=== PATIENT | male | born 1945 | race Caucasian/White ===

== ENCOUNTER 2022-11-20 14:15 | Inpatient (IN) | payer MEDICARE, OTHER ==
[2022-11-20] VITALS (15 sets, daily range): BP systolic 108–157; BP diastolic 61–141
[~2022-11-20] VITALS: Ht 172.7 cm; Wt 81.2 kg
[2022-11-20 17:43] LABS: Anti-Xa UFH, PHA Monitoring 0.17 IU/mL; International Normalized Ratio 0.98; Prothrombin Time Results 10.3 Sec (9.7-11.5)
--- NOTE | 2022-11-20 19:10 | NUR ---
Summary. Pt arrived to ICU from [facility] for NSTEMI. Pt alert and oriented upon arrival, C/O 4 out of 10 chest pain. EKG obtained, pt admitted by hospitalist. Heparin infusing at 12 unit/kg/hr upon arrival, pharmacy increased rate to 14 unit/kg/hr current infusion rate. Dr Power at bedside ATT, report given to nightshift RN.
[2022-11-20 19:51] LABS: Hematocrit 37.7 % (37.0-53.0); Hemoglobin 12.4 g/dL (13.5-17.5); Platelet Count 196 K/mm3 (150-400)
--- NOTE | 2022-11-20 19:57 | NUR ---
ASSUMED CARE AT 1900 PATIENT IS ALERT AND ORIENTED X4. 02 SATS 97% ON RA, STATES SOME SOB WITH ACTIVITY. HR SR 60s, BP STABLE. 2/10 CP, TOLERABLE RIGHT NOW. HEPARIN INFUSING. DR. CARDONA IN ROOM TO ASSESS PATIENT AT START OF SHIFT AND EXPLAINED PLAN OF CARE TO PATIENT AND FAMILY. SEE SHIFT ASSESSMENT FOR MORE INFORMATION.
--- NOTE | 2022-11-20 19:59 | NUR ---
IGINITION SOURCE AND RISK REVIEWED WITH PATIENT, DENIES SMOKING OR HAVING ANY EXERCISE MANAGER OR MATCHES. VERBALIZED UNDERSTANDING OF RISKS AND AGREES
[2022-11-21] VITALS (12 sets, daily range): BP systolic 105–142; BP diastolic 58–75
[2022-11-21 03:48] LABS: International Normalized Ratio 0.98; Prothrombin Time Results 10.3 Sec (9.7-11.5)
[2022-11-21 03:52] LABS: Alanine Aminotransfer (ALT/SGP 29 U/L (12-78); Albumin, Blood 3.3 g/dL (3.4-5.0); Albumin/Globulin Ratio 0.9 (0.8-1.8); Alk Phos 78 U/L (50-136); Anion Gap 6 mmol/L (6-16); Aspartate Aminotrans (AST/SGOT 82 U/L (12-37); Bilirubin, Total 0.4 mg/dL (0.1-1.0); Blood Urea Nitrogen 22 mg/dL (8-24); Bun/Creatinine Ratio 15.3 (12.0-20.0); CHOL/HDL RATIO 3.5; CO2, Blood 27 mmol/L (21-32); Calcium, Blood 8.7 mg/dL (8.5-10.1); Chloride, Blood 105 mmol/L (98-108); Cholesterol 122 mg/dL (50-200); Creatinine, Blood 1.44 mg/dL (0.60-1.20); Globulin, Blood 3.5 g/dL (2.2-4.0); Glomerular Filtration Rate 49 (60-); Glucose, Blood 131 mg/dL (70-99); HDL Cholesterol 35 mg/dL (>39); Hematocrit 34.6 % (37.0-53.0); Hemoglobin 11.3 g/dL (13.5-17.5); LDL/HDL RATIO 1.2; Low Density Lipoprotein Chol 43 mg/dL (0-110); Magnesium, Blood 2.1 mg/dL (1.6-2.4); Mean Corpuscular HGB Conc 32.7 g/dL (31.5-36.5); Mean Corpuscular Volume 83 fL (80-100); Mean Platelet Volume 12.7 fL (9.1-12.4); Platelet Count 151 K/mm3 (150-400); Potassium, Blood 4.2 mmol/L (3.5-5.5); RDW Coefficient Variation 16.2 % (11.7-14.2); RDW Standard Deviation 47.2 fL (35.1-46.3); Red Blood Cell Count 4.19 M/mm3 (4.30-5.90); Sodium, Blood 138 mmol/L (136-145); Total Protein, Blood 6.8 g/dL (6.4-8.2); Triglycerides 222 mg/dL (30-160); Very Low Density Lipoprot Chol 44 mg/dL (6-32); White Blood Cell Count 12.61 K/mm3 (4.00-11.30)
--- NOTE | 2022-11-21 05:34 | NUR ---
SHIFT SUMMARY PATIENT IS ALERT AND ORIENTED X4. PLACED ON 2L O2 WHILE SLEEPING DUE TO APNIEC BREATHING WHERE 02 SATS WOULD DROP TO THE LOWER 80s. DENIES SOB. HR SB-SR 55-60s, BP STABLE. PATIENT DENIES CP/PRESSURE. NPO AFTER MIDNIGHT. HEPARIN REMAINS INFUSING. CALL LIGHT IN REACH
--- NOTE | 2022-11-21 07:36 | NUR ---
ASSUMED CARE OF NATASHA AT 0700, HE DENIES ANY PAIN, DYSPNEA OR N/V AT THIS TIME. HE IS CURRENTLY ON HEPARIN GTT @ 14U/KG, EDUCATED ON BLEEDING TENDENCY WITH BLOOD THINNERS. PT INFORMED THAT CLEANER ASSISTANT IS SCHEDULED FOR AROUND 0830, EDUCA- [place] ON WHAT HAPPENS IN CLEANER ASSISTANT, TALKED ABOUT TRANSFERRING TO ANOTHER FACILITY IF NECESSARY FOR SURGERY. QUESTIONS ANSWERED. PT VERY APPROPRIATE AND PLEASANT.
--- NOTE | 2022-11-21 08:13 | NUR ---
NATASHA WAS JUST TAKEN TO COURT RECORDER BY KRISTIAN BRAUN AND SAMEER. AND GRANDDAUGHTER WERE AT THE DOOR AND WERE ABLE TO SAY HELLO AND WILL BE WAITING IN THE ICU WTG ROOM.
--- NOTE | 2022-11-21 10:08 | NUR ---
PT RETURNS AROUND 0915 TO ICU 3. HE IS ALERT AND ORIENTED, DENIES ANY DISCOMFORT. RIGHT TR BAND INTACT, NO EVIDENCE OF BLEEDING. TEACHING DONE, AND GRANDDAUGHTER TO THE ROOM, IN TO EXPLAIN RESULTS AND PLAN OF CARE FOR THE DAY. WILL START DEFLATING TR BAND AROUND 11. PT C/O HUNGER, CHEESE AND CRACKERS GIVEN. IV FLUIDS RESTARTED @ 150ML/HR PER ORDERS.
--- NOTE | 2022-11-21 10:38 | NUR ---
IN TO SEE PT. NO CHANGES.
--- NOTE | 2022-11-21 12:10 | NUR ---
ECHOCARDIOGRAM COMPLETED, BLOOD SUGAR CHECKED, INSULIN COVERAGE GIVEN. NATASHA WAS CONCERED THAT HIS BG WAS 180. EDUCATION COMPLETED. AT BEDSIDE, ASSITTING HIM WITH HIS TRAY
--- NOTE | 2022-11-21 12:57 | NUR ---
TR BAND SUCCESSFULLY DEFLATED WITH NO EVIDENCE OF LEAKING. SITE IS WITHOUT TENDERNESS OR HEMATOMA.
--- NOTE | 2022-11-21 17:58 | NUR ---
NATASHA HAS CONTINUED WITHOUT ANY PAIN OR DISCOMFORT T/O THE SHIFT. HE HAS VOICED THAT HE IS "SURPRISED" THAT HE HAD A HEART ATTACK. HE HAS BEEN MADE AWARE OF HIS AORTIC STENOSIS AND THE INTENT TO TRANSFER HIM TO ANOTHER FACILITY. HIS IV CONTINUES AT 150ML/HR X THIS ONE BAG. HE HAS BEEN ABLE TO VOID PER URINAL, TAKE IN HIS MEALS WITHOUT INCIDENT, AND VISITS WITH HIS FAMILY. CONTINUES ON ROOM AIR, SATS >90%.
--- NOTE | 2022-11-21 18:06 | NUR ---
PT HAS BEEN ACCEPTED BY AT [facility], PT HAS BEEN INFORMED.
--- NOTE | 2022-11-21 19:32 | NUR ---
ASSUMED CARE OF PT AT 1900 PT SOUSE IN ROOM WITH PATIENT AT BEDSIDE REPORT. PT A/O X4. VITALS WNL AT THIS TIME WITH NO COMPLAINTS. BED IN LOW POSTION AND CALL LIGHT WITHIN REACH.
--- NOTE | 2022-11-21 20:52 | NUR ---
PT DC'D TO AMBULANCE AT THIS TIME TO ANOTHER FACILITY.
--- NOTE | 2022-11-21 21:01 | NUR ---
REPORT GIVEN TO PATY AT [facility] IN [facility] NUMBER CALLED. .
== END 2022-11-21 20:47 | disposition short-term general hospital (02) | DRG 282 ==
LOC: PCU 14:15 → ICUE 16:00
PROVIDERS: ADMIT Nurse Practitioner Acute Care
PROC: B2111ZZ Fluoroscopy of Multiple Coronary Arteries using Low Osmolar Contrast (ICD-10-PCS; principal; 2022-11-21)
PROC: 4A023N7 Measurement of Cardiac Sampling and Pressure, Left Heart, Percutaneous Approach (ICD-10-PCS; 2022-11-21)
DX: I21.4 Non-ST elevation (NSTEMI) myocardial infarction (principal); E11.22 Type 2 diabetes mellitus with diabetic chronic kidney disease; I12.9 Hypertensive chronic kidney disease with stage 1 through stage 4 chronic kidney disease, or unspecified chronic kidney disease; D63.1 Anemia in chronic kidney disease; E78.5 Hyperlipidemia, unspecified; R00.1 Bradycardia, unspecified; D72.829 Elevated white blood cell count, unspecified; I25.10 Atherosclerotic heart disease of native coronary artery without angina pectoris; N18.30 Chronic kidney disease, stage 3 unspecified; K21.9 Gastro-esophageal reflux disease without esophagitis; E66.9 Obesity, unspecified; I35.0 Nonrheumatic aortic (valve) stenosis; Z79.811 Long term (current) use of aromatase inhibitors; Z79.899 Other long term (current) drug therapy; Z68.27 Body mass index [BMI] 27.0-27.9, adult; Z79.84 Long term (current) use of oral hypoglycemic drugs; Z87.891 Personal history of nicotine dependence; Z87.19 Personal history of other diseases of the digestive system
CPT/HCPCS: 36415; 76937; 80053; 80061; 82947; 83735; 84484; 85014; 85018; 85027; 85049; 85520; 85610; 85730; 93005; 93010; 93454; 93880; 99152; 99153; A9270; C1769; C1887; C1894; C8929; J1644; J2250; J3010; J7030; J7050; Q9957; Q9967